=== PATIENT | female | born 1995 | race American Indian/Alaskan Native ===

== ENCOUNTER 2018-04-29 19:33 | Emergency (ER) | payer MEDICAID ==
[2018-04-29 20:17] VITALS: BP 126/60
[2018-04-29 22:59] LABS: HCG Qualitative,Urine Negative (Negative)
[2018-04-29 23:01] LABS: Bilirubin,Urine NEG (Negative); Blood,Urine NEG (Negative); Color,Urine Yellow (Yellow); Mucus,Urine 3+ /HPF
[2018-04-29] MEDS ORDERED: MOTRIN PO ONE (23:47)
--- NOTE | 2018-04-29 23:52 | Emergency Department Report ---
ED General Adult HPI - General Chief complaint: Upper Respiratory Infection Stated complaint: CONGESTION,SORE THROAT,HEADACHE,SHORTNESS OF BREAT Time Seen by Provider: 04/29/18 23:40 Source: patient Mode of arrival: Ambulatory Limitations: No Limitations - History of Present Illness Initial comments: 22-year-old [place] female since to the emergency room for complaint of nasal congestion sore throat urinary frequency and mild dysuria. Patient admits to runny nose sneezing coughing HE throat. Patient does report she has tried to increase her fluid intake as well as taking sinus medication [id number] last used yesterday. Patient reports no past medical history currently takes no medications on a daily basis. Her symptoms has been going on for 2 weeks. -: week(s) (2) Location: back Quality: aching, sharp Consistency: intermittent Improves with: none Worsens with: none Associated Symptoms: cough, loss of appetite, other (Trenary congestion,) Treatments Prior to Arrival: other (OTC SINUS MEDS) - Related Data Previous Rx's Medication Instructions Recorded Last Taken Type Benzonatate [Tessalon Perle] 100 mg PO BID PRN #14 capsule 04/29/18 Unknown Rx Dexchlorpheniram/Phenylephrine 1 each PO Q6H #20 tab 04/29/18 Unknown Rx [Rymed Tablet] Fluticasone [Flonase] 1 spray NS QDAY #1 bottle 04/29/18 Unknown Rx Ibuprofen [Motrin 600 MG tab] 600 mg PO Q8H #30 tablet 04/29/18 Unknown Rx Allergies Allergy/AdvReac Type Severity Reaction Status Date / Time No Known Allergies Allergy Unverified 04/29/18 21:56 ED Review of Systems ROS: Stated complaint: CONGESTION,SORE THROAT,HEADACHE,SHORTNESS OF BREAT Other details as noted in HPI Constitutional: fever (subjective) ENT: throat pain, congestion, other (sneezing, rhinnohea) Respiratory: cough Musculoskeletal: myalgia ED Past Medical Hx - Past Medical History Previous Medical History?: No - Surgical History Past Surgical History?: No - Social History Smoking Status: Current Some Day Smoker Substance Use Type: Alcohol - Medications Home Medications: Home Medications Medication Instructions Recorded Confirmed Last Taken Type Benzonatate [Tessalon Perle] 100 mg PO BID PRN #14 capsule 04/29/18 Unknown Rx Dexchlorpheniram/Phenylephrine 1 each PO Q6H #20 tab 04/29/18 Unknown Rx [Rymed Tablet] Fluticasone [Flonase] 1 spray NS QDAY #1 bottle 04/29/18 Unknown Rx Ibuprofen [Motrin 600 MG tab] 600 mg PO Q8H #30 tablet 04/29/18 Unknown Rx ED Physical Exam - General Limitations: No Limitations General appearance: alert, in no apparent distress - Head Head exam: Present: atraumatic, normocephalic - Eye Eye exam: Present: PERRL, EOMI - ENT ENT exam: Present: mucous membranes moist - Expanded ENT Exam Expanded Throat exam: Positive: tonsillar erythema. Negative: tonsillomegaly, tonsillar exudate - Neck Neck exam: Present: tenderness, lymphadenopathy - Respiratory Respiratory exam: Present: normal lung sounds bilaterally. Absent: respiratory distress - Cardiovascular Cardiovascular Exam: Present: regular rate, normal rhythm. Absent: systolic murmur, diastolic murmur, rubs, gallop - Back Exam Back exam: Present: full ROM. Absent: CVA tenderness (R), CVA tenderness (L) - Neurological Exam Neurological exam: Present: alert, oriented X3 - Psychiatric Psychiatric exam: Present: normal affect, normal mood - Skin Skin exam: Present: warm, dry, intact, normal color. Absent: rash ED Course Vital Signs 04/29/18 04/29/18 20:15 20:25 Temperature 98.3 F 98.3 F Pulse Rate 77 77 Respiratory 16 Rate Blood Pressure 126/60 126/60 O2 Sat by Pulse 99 98 Oximetry ED Medical Decision Making - Medical Decision Making Patient has been evaluated by this provider fast track. Ibuprofen given for pain management Urinalysis shows the patient has urinary tract infection Patient's symptoms and exam shows patient is a allergic rhinitis We'll treat patient with Macrobid 100 mg twice a day for UTI. We'll treat patient with Flonase, Rymed and Tessalon Perles for allergic rhinitis. Critical care attestation.: If time is entered above; I have spent that time in minutes in the direct care of this critically ill patient, excluding procedure time. ED Disposition Clinical Impression: Allergic rhinitis Qualifiers: Allergic rhinitis trigger: unspecified Allergic rhinitis seasonality: unspecified Qualified Code(s): J30.9 - Allergic rhinitis, unspecified UTI (urinary tract infection) Qualifiers: Urinary tract infection type: acute cystitis Hematuria presence: without hematuria Qualified Code(s): N30.00 - Acute cystitis without hematuria Disposition: - TO HOME OR SELFCARE Is pt being admited?: No Does the pt Need Aspirin: No Condition: Stable Instructions: Urinary Tract Infection in Women (ED), Allergic Rhinitis (ED) Additional Instructions: Please take medication as prescribed. Please increase her water intake by 2 L. If your symptoms persist or gets worse please follow up with her primary care provider. Prescriptions: Benzonatate [Tessalon Perle] 100 mg PO BID PRN #14 capsule PRN Reason: Cough Dexchlorpheniram/Phenylephrine [Rymed Tablet] 1 each PO Q6H #20 tab Fluticasone [Flonase] 1 spray NS QDAY #1 bottle Ibuprofen [Motrin 600 MG tab] 600 mg PO Q8H #30 tablet Referrals: PRIMARY CARE, [Primary Care Provider] - 3-5 Days [facility] [Provider Group] - 3-5 Days Forms: Work/School Release Form(ED)
== END 2018-04-30 00:05 | disposition home or self-care (01) ==
LOC: ED 19:33
DX: J30.9 Allergic rhinitis, unspecified (principal); N30.00 Acute cystitis without hematuria; F17.200 Nicotine dependence, unspecified, uncomplicated
CPT/HCPCS: 81001; 81025